=== PATIENT | female | born 1955 | race Caucasian/White ===

== ENCOUNTER 2019-08-17 09:26 | Emergency (ER) | payer MEDICARE, BC ==
[2019-08-17 09:44] VITALS: BP 132/79; PULSE 79
--- NOTE | 2019-08-17 09:59 | EDM.PDOC ---
ED HPI GENERAL MEDICAL PROBLEM - General Chief Complaint: Headache Stated Complaint: HEADACHE/POST BACK SURGERY Time Seen by Provider: 08/17/19 09:58 Source of Information: Reports: Patient, RN Notes Reviewed History Limitations: Reports: No Limitations - History of Present Illness INITIAL COMMENTS - FREE TEXT/NARRATIVE: 63-year-old female had low back surgery 6 days ago in [place]. This was some kind of a fusion type procedure. Over the last few days she has developed worsening headache. She does do better when she takes pain medication but then the headache gets worse. She states she still also is having quite a lot of low back discomfort in the area of the surgery. There's major neck or upper back discomfort. No fever or chills. No nausea or vomiting. The headache is about the same at rest or with motion. The low back discomfort is worse with motion. 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 She did discuss current symptoms with her neurosurgeon's nurse who recommended coming here to the ED and getting a head CT. Treatments [employer]OR[employer] ARCHITECT: Reports: Other Medication(s) Other Treatments [employer]OR[employer] ARCHITECT: 2 hydrocodone Right Head Pain Score (Numeric/FACES): 8 - Related Data Allergies Allergy/AdvReac Type Severity Reaction Status Date / Time phenytoin sodium Allergy Cannot Verified 08/17/19 09:45 [From Dilantin] Remember phenytoin sodium extended Allergy Cannot Verified 08/17/19 09:45 [From Dilantin] Remember codeine AdvReac Confusion Verified 08/17/19 09:45 Home Meds: Home Meds Aspirin 325 mg PO DAILY 08/05/15 [History] Calcium Carbonate/Vitamin D3 [Os-Darryn 500+D] 1 tab PO DAILY 08/05/15 [History] Cholecalciferol (Vitamin D3) [Vitamin D3] 5,000 unit PO DAILY 08/05/15 [History] DULoxetine [Cymbalta] 60 mg PO DAILY 08/05/15 [History] Naproxen Sodium [Aleve] 220 mg PO BID PRN 08/05/15 [History] [place]-3/DHA/Epa/Fish Oil [Fish Oil 1,000 mg Softgel] 2 each PO DAILY 08/05/15 [ History] Pantoprazole Sodium [Protonix] 40 mg PO BEDTIME #30 tablet. 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 Other Gastrointestinal History: rectal bleeding, RLQ pain, gilberts syndrome Other Musculoskeletal History: foraminal stenosis of lumbar region, lumbar recticulopatihy, chronic low back pain, HIP STEROID INJECTIONS, R hip pain and bursitis, bulging disk and pinched nerve, R shoulder arthroscopy Other Neuro History: 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, headaches, hydrocephalus, crainiotomy, ventriculostomy (shunt taken out january 2007) Psychiatric History: Reports: Depression Other Endocrine/Metabolic History: excision of Left lymph nodes Other Hematologic History: factor V, blood clots and DVTS Other Immunologic History: [place] virus Other Dermatologic History: petechiae - Past Surgical History Other Cardiovascular Surgeries/Procedures: ivc filter in 2006 Other Neurological Surgeries/Procedures: Open Brain aneurysm surgery 2006 Other Oncologic Surgeries/Procedures: Lt groin lymph node removal Social & Family History - Tobacco Use Smoking Status *Q: Never Smoker - Caffeine Use Caffeine Use: Reports: Coffee ED ROS GENERAL - Review of Systems Review Of Systems: See Below Constitutional: Denies: Fever, Chills HEENT: Denies: Sinus Problem, Throat Pain Respiratory: Denies: Shortness of Breath Cardiovascular: Denies: Chest Pain GI/Abdominal: Denies: Abdominal Pain, Nausea, Vomiting Musculoskeletal: Reports: Back Pain (Low back), Leg Pain (Right proximal leg) Skin: Reports: No Symptoms Neurological: Reports: Headache. Denies: Trouble Speaking, Weakness (No focal weakness) - Physical Exam Exam: See Below General Appearance: Alert, Mild Distress Eye Exam: Bilateral Eye: PERRL Throat/Mouth: Normal Inspection, Normal Oropharynx Head Exam: Atraumatic Neck: Supple, Full Range of Motion Respiratory/Chest: No Respiratory Distress, Lungs Clear, Normal Breath Sounds Cardiovascular: Regular Rate, Rhythm Neuro Exam (Abbreviated): Alert, Oriented, No Motor/Sensory Deficits Back Exam: Other (Healing incision low back that is not showing evidence for localized swelling erythema and also no drainage) Extremities: Normal Inspection. No: Leg Pain, Increased Warmth, Redness Skin Exam: Warm, Dry, Normal Color Course - Vital Signs Last Recorded V/S: Last Vital Signs Temp 97.9 F 08/17/19 09:43 Pulse 79 08/17/19 09:43 Resp 20 08/17/19 09:43 BP 132/79 08/17/19 09:43 Pulse Ox 100 08/17/19 09:43 - Orders/Labs/Meds Orders: Active Orders 24 hr Category Date Time Status Peripheral IV Care [RC] . DIRECTED Care 08/17/19 10:09 Active Sodium Chloride 0.9% [Saline Flush] Med 08/17/19 10:07 Active 10 ml FLUSH ASDIRECTED PRN Peripheral IV Insertion Adult [OM.PC] Stat Oth 08/17/19 10:08 Ordered Medication Orders Sodium Chloride (Saline Flush) 10 ml FLUSH ASDIRECTED PRN PRN Reason: Keep Vein Open Last Admin: 08/17/19 10:52 Dose: 10 ml Labs: Laboratory Tests 08/17/19 08/17/19 Range/Units 10:33 10:33 WBC 5.97 (3.98-10.04) K/mm3 RBC 3.22 L (3.98-5.22) M/mm3 Hgb 9.6 L D (11.2-15.7) gm/dl Hct 30.2 L (34.1-44.9) % MCV 93.8 D (79.4-94.8) fl MCH 29.8 (25.6-32.2) pg MCHC 31.8 L (32.2-35.5) g/dl RDW Std Deviation 44.9 (36.4-46.3) fL Plt Count 191 (182-369) K/mm3 MPV 11.0 (9.4-12.3) fl Neutrophils % (Manual) 65 H (40-60) % Band Neutrophils % 0 (0-10) % Lymphocytes % (Manual) 21 (20-40) % Atypical Lymphs % 0 % Monocytes % (Manual) 12 H (2-10) % Eosinophils % (Manual) 2 (0.7-5.8) % Basophils % (Manual) 0 L (0.1-1.2) Platelet Estimate Adequate RBC Morph Comment Normal Sodium 143 (136-145) mEq/L Potassium 3.5 (3.5-5.1) mEq/L Chloride 105 (98-107) mEq/L Carbon Dioxide 28 (21-32) mEq/L Anion Gap 13.5 (5-15) BUN 11 (7-18) mg/dL Creatinine 1.0 (0.55-1.02) mg/dL Est Cr Clr Drug Dosing 54.60 mL/min Estimated GFR (MDRD) 56 (>60) mL/min BUN/Creatinine Ratio 11.0 L (14-18) Glucose 101 (80-115) mg/dL Calcium 9.1 (8.5-10.1) mg/dL Total Bilirubin 1.1 H (0.2-1.0) mg/dL AST 24 (15-37) U/L ALT 31 (14-59) U/L Alkaline Phosphatase 284 H (46-116) U/L Total Protein 6.4 (6.4-8.2) g/dl Albumin 2.8 L (3.4-5.0) g/dl Globulin 3.6 gm/dL Albumin/Globulin Ratio 0.8 L (1-2) Meds: Medications Generic Name Dose Route Start Last Admin Trade Name Freq PRN Reason Stop Dose Admin Sodium Chloride 10 ml 08/17/19 10:07 08/17/19 10:52 Saline Flush FLUSH 10 ml ASDIRECTED PRN Administration Keep Vein Open Discontinued Medications Generic Name Dose Route Start Last Admin Trade Name Freq PRN Reason Stop Dose Admin Ketorolac Tromethamine 30 mg 08/17/19 11:29 08/17/19 11:43 Toradol IM 08/17/19 11:30 30 mg ONETIME ONE Administration - Re-Assessments/Exams Free Text/Narrative Re-Assessment/Exam: 08/17/19 12:[address] did not show any acute findings, it did show evidence of prior surgery. Blood count normal, chemistries relatively normal. Discharge instructions as documented. Departure - Departure Time of Disposition: 11:24 Disposition: Home, Self-Care 01 Condition: Fair Clinical Impression: Headache, Back pain - Discharge Information Instructions: Acute Back Pain, Adult Referrals: Donell Carrillo MD [Primary Care Provider] - Forms: ED Department Discharge Additional Instructions: Rest, increase dosage of your hydrocodone to 2 tabs every 4 hours as needed until headache and back pain improving. Your Head CT and WBC looked good here in the ED today. Your incission appears to be healing well. Call your Neurosurgeon's nurse if not better by tomorrow, consider follow up Andrew tomorrow or Weds. if not better by tomorrow. Return to ED as needed if symptoms worsening in any way. - My Orders Last 24 Hours: My Active Orders 08/17/19 10:07 Sodium Chloride 0.9% [Saline Flush] 10 ml FLUSH ASDIRECTED PRN 08/17/19 10:08 Peripheral IV Insertion Adult [OM.PC] Stat 08/17/19 10:09 Peripheral IV Care [RC] . DIRECTED - Assessment/Plan Last 24 Hours: My Active Orders 08/17/19 10:07 Sodium Chloride 0.9% [Saline Flush] 10 ml FLUSH ASDIRECTED PRN 08/17/19 10:08 Peripheral IV Insertion Adult [OM.PC] Stat 08/17/19 10:09 Peripheral IV Care [RC] . DIRECTED
[2019-08-17] MEDS ORDERED: Sodium Chloride 0.9% 10 ML Syringe FLUSH PRN (10:07)
--- NOTE | 2019-08-17 11:12 | CT ---
Head CT Technique: Multiple axial sections through the brain were obtained. Intravenous contrast was not utilized. Comparison: Prior head CT study of 08/25/11 and previous MRI brain of 06/11/11. Findings: Stable area of encephalomalacia is seen within the posterior left temporal region and adjacent parietal region. Prior craniotomy is seen in this area. Ivana hole is noted within the left frontal region. No acute parenchymal change is seen. No evidence of intracranial hemorrhage. No midline shift or mass effect is seen. Bone window settings were reviewed which show no acute calvarial abnormality. Mastoid sinus on the right side shows slight mucosal thickening. This is similar to previous exam. No acute paranasal sinus findings are seen. Impression: 1. Previous surgery. 2. Nothing acute is appreciated on noncontrast head CT exam. Diagnostic code #2
[2019-08-17] MEDS ORDERED: Ketorolac 30 MG/ML SDV IM ONE (11:29)
== END 2019-08-17 12:10 | disposition home or self-care (01) ==
LOC: JD.ED 09:26
DX: R51 Headache (principal); M54.9 Dorsalgia, unspecified; Z88.5 Allergy status to narcotic agent; Z88.8 Allergy status to other drugs, medicaments and biological substances; Z79.82 Long term (current) use of aspirin; J45.909 Unspecified asthma, uncomplicated
CPT/HCPCS: 36415; 70450; 80053; 85007; 85027; 96372; 99284; J1885; 99283

== ENCOUNTER 2021-04-19 19:14 | Emergency (ER) | payer MEDICARE, OTHER ==
[2021-04-19 19:29] VITALS: BP 169/109; PULSE 86
[2021-04-19] MEDS ORDERED: Sodium Chloride 0.9% 1,000 ML IV STA (19:34)
[2021-04-19] MEDS ORDERED: Ondansetron 4 MG/2 ML SDV IVPUSH ONE (19:34)
--- NOTE | 2021-04-19 19:51 | EDM.PDOC ---
ED HPI GENERAL MEDICAL PROBLEM - General Chief Complaint: Headache Stated Complaint: HEADACHE Time Seen by Provider: 04/19/21 19:21 Source of Information: Reports: Patient, RN Notes Reviewed History Limitations: Reports: No Limitations - History of Present Illness INITIAL COMMENTS - FREE TEXT/NARRATIVE: Patient is a 65-year-old female presenting to the emergency department with complaints of left-sided headache. Reports that she does have a history of migraines but has not had them for quite some time. For the last week, she has been getting headaches intermittently. She did have one this morning but it went away about after about 1 hour. This evening it returned and is quite intense. She does reports a history of ruptured aneurysm on the left and is concerned that she could have another aneurysm. She feels nauseous but has had no vomiting. Does report some light sensitivity. Denies any dizziness. head Pain Score (Numeric/FACES): 9 - Related Data Allergies Allergy/AdvReac Type Severity Reaction Status Date / Time ketorolac [From Toradol] Allergy Cannot Verified 04/19/21 19:50 Remember phenytoin sodium Allergy Cannot Verified 04/19/21 19:29 [From Dilantin] Remember phenytoin sodium extended Allergy Cannot Verified 04/19/21 19:29 [From Dilantin] Remember codeine AdvReac Confusion Verified 04/19/21 19:29 Home Meds: Home Meds Aspirin 325 mg PO DAILY 08/05/15 [History] Calcium Carbonate/Vitamin D3 [Os-Darryn 500+D] 1 tab PO DAILY 08/05/15 [History] Cholecalciferol (Vitamin D3) [Vitamin D3] 5,000 unit PO DAILY 08/05/15 [History] DULoxetine [Cymbalta] 60 mg PO DAILY 08/05/15 [History] Naproxen Sodium [Aleve] 220 mg PO BID PRN 08/05/15 [History] [place]-3/DHA/Epa/Fish Oil [Fish Oil 1,000 mg Softgel] 2 each PO DAILY 08/05/15 [History] Pantoprazole Sodium [Protonix] 40 mg PO BEDTIME #30 tablet. 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 Other Gastrointestinal History: rectal bleeding, RLQ pain, gilberts syndrome Other Musculoskeletal History: foraminal stenosis of lumbar region, lumbar recticulopatihy, chronic low back pain, HIP STEROID INJECTIONS, R hip pain and bursitis, bulging disk and pinched nerve, R shoulder arthroscopy Other Neuro History: 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, headaches, hydrocephalus, crainiotomy, ventriculostomy (shunt taken out january 2007) Psychiatric History: Reports: Depression Other Endocrine/Metabolic History: excision of Left lymph nodes Other Hematologic History: factor V, blood clots and DVTS Other Immunologic History: [place] virus Other Dermatologic History: petechiae - Past Surgical History Other Cardiovascular Surgeries/Procedures: ivc filter in 2006 Other Neurological Surgeries/Procedures: Open Brain aneurysm surgery 2006 Other Oncologic Surgeries/Procedures: Lt groin lymph node removal Social & Family History - Tobacco Use Tobacco Use Status *Q: Never Tobacco User - Caffeine Use Caffeine Use: Reports: Coffee - Recreational Drug Use Recreational Drug Use: No ED ROS GENERAL - Review of Systems Review Of Systems: Comprehensive ROS is negative, except as noted in HPI. - Physical Exam Exam: See Below Exam Limited By: No Limitations General Appearance: Alert, WD/WN, No Apparent Distress Eye Exam: Bilateral Eye: PERRL Respiratory/Chest: No Respiratory Distress, Lungs Clear, Normal Breath Sounds, No Accessory Muscle Use, Chest Non-Tender Cardiovascular: Normal Peripheral Pulses, Regular Rate, Rhythm, No Edema, No Gallop, No JVD, No Murmur, No Rub Neuro Exam (Abbreviated): Alert, Oriented, CN II-XII Intact, Normal Cognition, Normal Gait, Normal Reflexes, No Motor/Sensory Deficits Psychiatric: Normal Affect, Normal Mood Skin Exam: Warm, Dry, Intact, Normal Color, No Rash Course - Vital Signs Last Recorded V/S: Last Vital Signs Temp 97.6 F 04/19/21 19:26 Pulse 86 04/19/21 19:26 Resp 18 04/19/21 19:26 BP 169/109 H 04/19/21 19:26 Pulse Ox 99 04/19/21 19:26 - Orders/Labs/Meds Orders: Active Orders 24 hr Category Date Time Status Head wo Cont [CT] Stat Exams 04/19/21 19:33 Taken Meds: Medications Discontinued Medications Generic Name Dose Route Start Last Admin Trade Name Yajaira PRN Reason Stop Dose Admin Hydromorphone HCl 0.5 mg 04/19/21 20:39 04/19/21 20:50 Hydromorphone 0.5 Mg/0.5 Ml Syringe IVPUSH 04/19/21 20:40 0.5 mg ONETIME ONE Administration Sodium Chloride 1,000 mls @ 150 mls/hr 04/19/21 19:34 04/19/21 19:50 Normal Saline IV 04/20/21 02:13 150 mls/hr NOW STA Administration Ibuprofen 800 mg 04/19/21 20:39 04/19/21 20:57 Ibuprofen 800 Mg Tab PO 04/19/21 20:40 800 mg ONETIME ONE Administration Ondansetron HCl 4 mg 04/19/21 19:34 04/19/21 19:47 Ondansetron 4 Mg/2 Ml Sdv IVPUSH 04/19/21 19:35 4 mg ONETIME ONE Administration - Re-Assessments/Exams Free Text/Narrative Re-Assessment/Exam: Patient is a 65-year-old female presenting to the emergency department with acute onset of left-sided headache approximate 30 minutes prior to arrival to ER. 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 She is concerned that she could have recurrence of this. Has some slight light sensitivity. Feels nauseous but has not been vomiting. She does have a history of migraines and states that she has been getting increased headaches over the last few weeks. Exam is unremarkable. I have ordered CT scan of the head, IV fluids, and Zofran. 04/19/21 20:50 CT of the head impression as follows: 1. 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 2. No acute changes currently noted Patient has an allergy to Toradol, therefore I will give her ibuprofen 800 mg p.o. as well as Dilaudid 0.5 mg IV. Nausea has improved with the medications given. 04/19/21 22:06 Patient is feeling much better. She is ready to go home. We will discharge her home. Discussed return precautions. Discharge instructions as documented. Departure - Departure Time of Disposition: 22:06 Disposition: Home, Self-Care 01 Condition: Good Clinical Impression: Migraine - Discharge Information *PRESCRIPTION DRUG MONITORING PROGRAM REVIEWED*: No *COPY OF PRESCRIPTION DRUG MONITORING REPORT IN PATIENT [place]CHELL: No Instructions: Migraine Headache, [id number] Referrals: Donell Carrillo MD [Primary Care Provider] - Forms: ED Department Discharge Additional Instructions: You were seen in the emergency department today for left-sided headache. CT scan of your head was completed and found no evidence of bleeding. While in the ER, you received IV fluids, Zofran for nausea, Motrin, and Dilaudid. This did significantly improve your headache. Recommend that you go home and rest. May continue Tylenol or ibuprofen as needed. Return to ER for new or worsening symptoms. Sepsis Event Note (ED) - Evaluation Sepsis Screening Result: No Definite Risk - Focused Exam Vital Signs: Vital Signs Temp Pulse Resp BP Pulse Ox 04/19/21 19:26 97.6 F 86 18 169/109 H 99 - My Orders Last 24 Hours: My Active Orders 04/19/21 19:33 Head wo Cont [CT] Stat - Assessment/Plan Last 24 Hours: My Active Orders 04/19/21 19:33 Head wo Cont [CT] Stat
[2021-04-19] MEDS ORDERED: HYDROmorphone 0.5 MG/0.5 ML Syringe IVPUSH ONE (20:39)
[2021-04-19] MEDS ORDERED: Ibuprofen 800 MG Tab PO ONE (20:39)
--- NOTE | 2021-04-20 07:57 | CT ---
Head CT Technique: Multiple axial sections through the brain were obtained. Intravenous contrast was not utilized. Reconstructed coronal and sagittal images were obtained. Comparison: Prior head CT study of 08/17/19. Findings: Low density area of encephalomalacia is seen within the left temporal lobe which is stable from prior exam. Slight area of encephalomalacia is also noted within the periphery of the left cerebellar hemisphere which is stable. Ventricles along with basal cisterns and sulci over the convexities appear within normal limits. No other abnormal parenchymal densities are seen. No evidence of intracranial hemorrhage is seen. No midline shift or mass-effect is seen. Bone window settings were reviewed which show prior left-sided craniotomy. Calvarial grafts are seen. No acute calvarial abnormality is otherwise seen. Visualized paranasal sinuses and mastoid sinuses show nothing acute. Impression: 1. Areas of encephalomalacia on the left side which remain stable. 2. Prior left-sided craniotomy. 3. No acute intracranial abnormality is identified. Diagnostic code #2 I agree with preliminary report from [facility], finalized on 04/19/21, 9:44 PM CDT, code 1
== END 2021-04-19 22:11 | disposition home or self-care (01) ==
LOC: JD.ED 19:14
DX: G43.909 Migraine, unspecified, not intractable, without status migrainosus (principal); J45.909 Unspecified asthma, uncomplicated; Z88.5 Allergy status to narcotic agent; Z88.8 Allergy status to other drugs, medicaments and biological substances; Z79.82 Long term (current) use of aspirin; Z79.899 Other long term (current) drug therapy
CPT/HCPCS: 70450; 96374; 96375; 99283; A9270; J1170; J2405; J7030; 99284

== ENCOUNTER 2021-12-23 17:36 | Emergency (ER) | payer MEDICARE, OTHER ==
[2021-12-23 17:52] VITALS: BP 153/74; PULSE 68
[2021-12-23] MEDS ORDERED: Diphtheria,Pertussis(Acell),Tetanus Vaccine 0.5 ML Syringe IM ONE (18:02)
[2021-12-23] MEDS ORDERED: Amoxicillin/Clavulanate K 875-125 MG Tab PO ONE (18:02)
[2021-12-23] MEDS ORDERED: Lidocaine 1% 10 ML MDV INJECT ONE (18:09)
== END 2021-12-23 19:35 | disposition home or self-care (01) ==
LOC: JD.ED 17:36
DX: S61.252A Open bite of right middle finger without damage to nail, initial encounter (principal); Z88.5 Allergy status to narcotic agent; Z88.6 Allergy status to analgesic agent; Z88.8 Allergy status to other drugs, medicaments and biological substances; Z79.82 Long term (current) use of aspirin; Z23 Encounter for immunization; Z79.899 Other long term (current) drug therapy; W54.0XXA Bitten by dog, initial encounter
CPT/HCPCS: 12002; 73140; 90471; 90715; 99283; A9270

== ENCOUNTER 2022-03-09 10:08 | Emergency (ER) | payer MEDICARE, OTHER ==
[2022-03-09 10:24] VITALS: BP 136/85; PULSE 61
[2022-03-09] MEDS ORDERED: Acetaminophen 325 MG Tab PO ONE (10:46)
== END 2022-03-09 12:05 | disposition home or self-care (01) ==
LOC: JD.ED 10:08
DX: S00.03XA Contusion of scalp, initial encounter (principal); Z79.82 Long term (current) use of aspirin; Z79.899 Other long term (current) drug therapy; Z88.8 Allergy status to other drugs, medicaments and biological substances; Z88.0 Allergy status to penicillin; X58.XXXA Exposure to other specified factors, initial encounter
CPT/HCPCS: 70450; 99283; A9270